=== PATIENT | male | born 1980 | race Caucasian/White ===

== ENCOUNTER 2023-10-15 09:20 | Day surgery (SDC) | payer OTHER ==
[~2023-10-15] VITALS: Ht 190.5 cm; Wt 145.1 kg
[2023-10-15] MEDS ORDERED: LISI5 PO (09:49)
[2023-10-15] MEDS ORDERED: ATORVASTATIN CA20 MG PO (09:49)
--- NOTE | 2023-10-15 09:57 | NUR ---
10/15/23 0957 Anoop Abernathy CALL LIGHT WITHIN REACH. TETRACAINE IN RIGHT EYE AT 0951 AND PLEDGETT IN AT 0967
[2023-10-15 11:30] VITALS: BP 139/88
== END 2023-10-15 11:44 | disposition home or self-care (01) ==
LOC: ORSCSDS 09:20
PROVIDERS: Student in an Organized Health Care Education/Training Program
PROC: 08RJ3JZ Replacement of Right Lens with Synthetic Substitute, Percutaneous Approach (ICD-10-PCS; principal; 2023-10-15 10:30)
DX: H25.11 Age-related nuclear cataract, right eye (principal); Z96.1 Presence of intraocular lens; I10 Essential (primary) hypertension; E66.9 Obesity, unspecified; Z68.41 Body mass index [BMI] 40.0-44.9, adult; Z79.899 Other long term (current) drug therapy
CPT/HCPCS: J2250; J3010; J7040; V2632

== ENCOUNTER 2025-05-03 10:55 | Inpatient (IN) | payer OTHER ==
[2025-05-03] VITALS (18 sets, daily range): BP systolic 138–186; BP diastolic 71–150
[~2025-05-03] VITALS: Ht 190.5 cm; Wt 145.0 kg
[~2025-05-03 10:55] MED LIST: ATORVASTATIN CA20 MG PO; LISI5 PO
[2025-05-03] MEDS ORDERED: NS 1,000 ML IV SCH ×2 (12:25→15:35)
[2025-05-03] MEDS ORDERED: Piperacillin/Tazobactam Sod 4.5 GM in NS 100 ML IV ONE (13:55)
[2025-05-03] MEDS ORDERED: Ketorolac Tromethamine 15mg Vial IV ONE (14:05)
[2025-05-03] MEDS ORDERED: Acetaminophen 500 MG Tab PO ONE (14:25)
[2025-05-03] MEDS ORDERED: Vancomycin HCL 2,500 MG in NS 500 ML IV ONE (15:25)
[2025-05-03] MEDS ORDERED: Acetaminophen 325 MG TABLET PO PRN (15:30)
[2025-05-03] MEDS ORDERED: Prochlorperazine Edisylate 10 mg Vial IV PRN (15:35)
[2025-05-03] MEDS ORDERED: HYDROmorphone HCl/Pf 1MG SYR IV PRN ×2 (15:35→20:10)
[2025-05-03] MEDS ORDERED: IBUP400 PO (16:52)
[2025-05-03] MEDS ORDERED: Lactated Ringer's 1,000 ML IV SCH (17:05)
--- NOTE | 2025-05-03 17:14 | NUR ---
UPDATE PT TAKEN TO DAY SURGERY FOR PROCEDURE. WILL AWAIT RETURN.
[2025-05-03] MEDS ORDERED: Dexamethasone Sod Phos 10 MG/ML 1ML VIAL ONE (17:21)
[2025-05-03] MEDS ORDERED: Ondansetron HCl 2 MG / ML 2ML Vial ONE (17:21)
[2025-05-03] MEDS ORDERED: Rocuronium Bromide 10 MG/ML 5ML Injection IV ONE (17:22)
[2025-05-03] MEDS ORDERED: SuccINYLCHOLINE Chloride 100 MG/5 ML 5MLSYR ONE (17:22)
[2025-05-03] MEDS ORDERED: propofoL 40 ML IV ONE (17:22)
[2025-05-03] MEDS ORDERED: Dexmedetomidine HCL 200 MCG / 2 ML ONE (17:56)
[2025-05-03] MEDS ORDERED: Etomidate 2MG / ML 10ML Vial ONE (17:56)
[2025-05-03] MEDS ORDERED: Piperacillin/Tazobactam Sod 3.375 GM in NS 100 ML IV SCH (18:00)
[2025-05-03] MEDS ORDERED: Lidocaine 2%-Epineph 1:100000 20 ML MDV ONE (18:04)
[2025-05-03] MEDS ORDERED: Metoclopramide HCl 5MG / ML 2ML Vial ONE (18:07)
[2025-05-03] MEDS ORDERED: Benzocaine Oral Spray 0.5ML UD ONE (18:11)
[2025-05-03] MEDS ORDERED: Midazolam HCl 1MG / ML 2ML Vial ONE (18:29)
[2025-05-03] MEDS ORDERED: Lidocaine 1%-Epineph 1:100000 20 ML MDV INJ ONE (18:55)
[2025-05-03] MEDS ORDERED: FentaNYL Citrate 50 MCG/ML 2 ML Injection ONE ×2 (18:55→20:17)
[2025-05-03] MEDS ORDERED: Sugammadex Sodium 200 MG/2ML SDV (100 MG/ML) ONE (19:24)
[2025-05-03] MEDS ORDERED: Ondansetron HCl 2 MG / ML 2ML Vial IV PRN (20:05)
[2025-05-03] MEDS ORDERED: HydrALAZINE HCl 20 MG / ML 1ML Vial IV PRN (20:10)
[2025-05-03] MEDS ORDERED: Albuterol 2.5 MG/3 ML VIAL INH PRN (20:10)
[2025-05-03] MEDS ORDERED: FentaNYL Citrate 50 MCG/ML 2 ML Injection IV PRN (20:10)
[2025-05-03] MEDS ORDERED: Ketorolac Tromethamine 30mg Vial IV PRN (20:15)
[2025-05-03] MEDS ORDERED: Ketorolac Tromethamine 15mg Vial IV PRN (20:15)
[2025-05-03] MEDS ORDERED: HydrALAZINE HCl 20 MG / ML 1ML Vial ONE (20:17)
[2025-05-03] MEDS ORDERED: Ketorolac Tromethamine 30mg Vial ONE (20:17)
[2025-05-03 21:38] LABS: International Normalized Ratio 1.14; Prothrombin Time Results 12.4 Sec (9.7-11.5)
[2025-05-04] VITALS (8 sets, daily range): BP systolic 108–144; BP diastolic 61–83
[2025-05-04] MEDS ORDERED: Piperacillin/Tazobactam Sod 3.375 GM in NS 100 ML IV SCH
[2025-05-04] MEDS ORDERED: Vancomycin HCL 2,000 MG in NS 500 ML IV SCH (03:00)
[2025-05-04 04:05] LABS: BASOPHILS ABSOLUTE AUTO 0.03 K/mm3 (0.00-0.23); BASOPHILS PERCENT AUTO 0 % (0-2); EOSINOPHILS PERCENT AUTO 0 % (0-6); Hematocrit 38.1 % (37.0-53.0); Hemoglobin 12.5 g/dL (13.5-17.5); IMMATURE GRAN ABSOLUTE AUTO 0.19 K/mm3 (0.00-0.10); IMMATURE GRAN PERCENT AUTO 1 % (0-1); LYMPHOCYTES ABSOLUTE AUTO 1.48 K/mm3 (0.84-5.20); LYMPHOCYTES PERCENT AUTO 7 % (21-46); MONOCYTES ABSOLUTE AUTO 1.41 K/mm3 (0.16-1.47); MONOCYTES PERCENT AUTO 7 % (4-13); Mean Corpuscular HGB 27.2 pg (26.0-34.0); Mean Corpuscular HGB Conc 32.8 g/dL (31.5-36.5); Mean Corpuscular Volume 83 fL (80-100); Mean Platelet Volume 10.3 fL (9.1-12.4); NEUTROPHILS ABSOLUTE AUTO 18.66 K/mm3 (1.96-9.15); NEUTROPHILS PERCENT AUTO 86 % (41-73); Platelet Count 223 K/mm3 (150-400); RDW Coefficient Variation 14.3 % (11.7-14.2); RDW Standard Deviation 42.9 fL (35.1-46.3); Red Blood Cell Count 4.59 M/mm3 (4.30-5.90); White Blood Cell Count 21.77 K/mm3 (4.00-11.30)
[2025-05-04 04:26] LABS: Bun/Creatinine Ratio 11.4 (12.0-20.0); Calcium, Blood 8.5 mg/dL (8.5-10.1); Creatinine, Blood 0.97 mg/dL (0.60-1.20); Potassium, Blood 4.3 mmol/L (3.5-5.5)
--- NOTE | 2025-05-04 05:22 | NUR ---
SHIFT SUMMARY. PATIENT IS ALERT AND ORIENTED X4. PATIENT IS ABLE TO MAKE HIS NEEDS KNOWN AND CALLS APPROPRIATELY. PATIENT WAS ADMITTED 05/03/25 WITH AN ABSCESS TO THE LEFT NECK. PERFORMED AND I&D ON THE PATIENTS ABSCESS ON 05/03/25 PATIENT RETURNED TO ROOM VIA GURNEY AND 4P ASSIST WITH SLIDE SHEET BACK INTO HOSPITAL BED. PATIENT IS ABLE TO STAND INDEPENDENTLY AT BEDSIDE AND USE THE URINAL-PRIOR TO I&D PATIENT UP INDEPENDENTLY IN ROOM-PATIENT FEELS STEADY ON HIS FEET. PATIENT REPORTS BEING HUNGRY UPON ARRIVAL BACK TO ROOM-RESIDENT CONTACTED AND ADVANCED DIET TO FULL LIQUID-PATIENT TOLERATED FULL LIQUID WELL, BEDSIDE SWALLOW DONE AND PATIENT ABLE TO TOLERATE SOLD FOODS. PATIENT IS PLEASANT AND COOPERATIVE WITH CARE. PATIENT IS RECEIVING IV ABX AT THIS TIME, WBC ELEVATED ON MORNING LABS THIS AM; 05/04/25. PATIENT HAS DRESSING TO LEFT NECK WITH KAY DRAIN. PATIENT REPORTED THAT DRESSING FELT OPEN AND THAT IT MIGHT BE WET-THIS RN PULLED DRESSING BACK, DRESSING NOT SATURATED AND KAY DRAIN IN PLACE. PATIENT HAD A FEVER THIS MORNING TREATED WITH TYLENOL PER ORDERS WITH A DECREASE TO TEMPERATURE. PATIENT DENIES PAIN AT REST BUT REPORTS PAIN WHEN MOVING HEAD TOWARDS THE LEFT. PATIENT REPORTS THAT HIS THROAT IS SORE-DISCUSSED AND EDUCATED ON BEING INTUBATED DURING THE PROCEDURE-PATIENT EXPRESSED UNDERSTANDING. PATIENT HAS RESTED ON AND OFF T/O NIGHT. BED IS LOCKED IN THE LOWEST POSITION WITH CALL LIGHT AND URINAL IN REACH. PATIENTS NEEDS ASSESSED-PATIENT DENIES NEEDS AT THIS TIME. CARE IS ONGOING.
[2025-05-04] MEDS ORDERED: Lisinopril 10 MG Tab PO SCH (09:00)
--- NOTE | 2025-05-04 09:58 | NUR ---
AM NOTE: PATIENT ALERT AND ORIENTED X4. DENIES PAIN THIS MORNING. LEFT NECK DRESSING C/D/I. SWELLING/REDNESS NOTED TO LEFT NECK. KAY DRAIN IN PLACE. ABSCESS CULTURE SENT TO LAB THIS AM. MOVING IND IN BED AND UP TO BATHROOM. TELE SHOWING SR WITH HR 70-90'S. DENIES CHEST PAIN/PRESSURE/PALPITATIONS. PPP. SCD'S IN PLACE. ON ROOM AIR, LUNG SOUNDS CLEAR. DENIES SOB/COUGH. EVEN AND UNLABORED RESPIRTATIONS. BOWEL TONES PRESENT. DENIES ABDOMINAL PAIN/NAUSEA. TOELRATING PO DIET, ADVANCED TO REGULAR. COMPLAINS OF INTERMIT SORE THROAT. DENIES ISSUES WITH VOIDING. USING URINAL IND. AT BEDSIDE. DR. ERICKSON BY THIS AM FOR MD ROUNDING AND THIS RN AND AT BEDSIDE. ORDERS FOR MEDICAL STATUS NO TELE, DISCONTINUE IV NORMAL SALINE AND REGULAR DIET. ORDERS IN PLACE. PATIENT DENIES NEEDS AT THIS TIME.
--- NOTE | 2025-05-04 18:08 | NUR ---
TRANSFER: REPORTED OFF TO DAVID LUCIA. PATIENT REMAINS ALERT AND ORIENTED. UP IND. SHOWER COMPLETED TODAY. DR. LPOEZ TO BEDSIDE TO ASSESS, SEE WOUND CARE ORDERS. MEDICAL STATUS NO TELE. ON ROOM AIR. SEE CHARTED TEMPS. PATIENT REQUESTING TYLENOL Q6. AT BEDSIDE AND UPDATED THROUGHOUT THE DAY. TRANSFER TO MEDICAL WITH ALL PERSONAL BELONGINGS, CHART AND WITH IV ABX INFUSING.
--- NOTE | 2025-05-04 19:19 | NUR ---
ASSUMPTION OF CARE RECEIVED CLIENT AAS A TRANSFER FROM PCU. CLIENT IS POST IND OF AN ABCESS ON LEFT NECK. WOUND HAS A KAY DRAIN COVERED BY GAUZE AND SECURED WITH TAPE.REGULAR DIET, ROOM AIR, IV'S IN LEFT AC AND RIGHT WRIST. INDEPENDENT IN ROOM. AOX4. ORIENTED TO ROOM AND RAPID RESPONSE TEAM PROCEDURE. BED IN LOW POSITION AND CALL LIGHT IS WITHIN REACH
[2025-05-04] MEDS ORDERED: Ketorolac Tromethamine 15mg Vial IV PRN (21:40)
--- NOTE | 2025-05-04 21:40 | NUR ---
NEW T-ORDER RECEIVED FROM THE ON-CALL HOSPITALIST DR. ROCHA: TORADOL IV 15MG Q8HRS PRN, MAX 5 DOSES. ENTERED TO [email or web address], SEE EMAR.
[2025-05-04] MEDS ORDERED: NS 250 ML IV PRN (23:55)
[2025-05-05 02:31] LABS: BASOPHILS ABSOLUTE AUTO 0.06 K/mm3 (0.00-0.23); BASOPHILS PERCENT AUTO 0 % (0-2); EOSINOPHILS ABSOLUTE AUTO 0.07 K/mm3 (0.00-0.68); EOSINOPHILS PERCENT AUTO 0 % (0-6); Hematocrit 34.3 % (37.0-53.0); Hemoglobin 11.3 g/dL (13.5-17.5); IMMATURE GRAN ABSOLUTE AUTO 0.11 K/mm3 (0.00-0.10); IMMATURE GRAN PERCENT AUTO 1 % (0-1); LYMPHOCYTES ABSOLUTE AUTO 2.67 K/mm3 (0.84-5.20); LYMPHOCYTES PERCENT AUTO 15 % (21-46); MONOCYTES PERCENT AUTO 9 % (4-13); Mean Corpuscular HGB 26.8 pg (26.0-34.0); Mean Corpuscular HGB Conc 32.9 g/dL (31.5-36.5); Mean Corpuscular Volume 82 fL (80-100); Mean Platelet Volume 10.2 fL (9.1-12.4); NEUTROPHILS ABSOLUTE AUTO 13.28 K/mm3 (1.96-9.15); NEUTROPHILS PERCENT AUTO 75 % (41-73); Platelet Count 201 K/mm3 (150-400); RDW Coefficient Variation 14.5 % (11.7-14.2); RDW Standard Deviation 42.8 fL (35.1-46.3); Red Blood Cell Count 4.21 M/mm3 (4.30-5.90); White Blood Cell Count 17.79 K/mm3 (4.00-11.30)
[2025-05-05 02:50] LABS: Anion Gap 8 mmol/L (3-11); Blood Urea Nitrogen 15 mg/dL (8-24); Bun/Creatinine Ratio 17.8 (12.0-20.0); CO2, Blood 24 mmol/L (21-32); Calcium, Blood 8.3 mg/dL (8.5-10.1); Chloride, Blood 112 mmol/L (98-108); Creatinine, Blood 0.84 mg/dL (0.60-1.20); Glomerular Filtration Rate 109 (60-); Glucose, Blood 126 mg/dL (70-99); Sodium, Blood 140 mmol/L (136-145); Vancomycin, Trough 10.2 ug/mL (5.0-10.0)
--- NOTE | 2025-05-05 03:37 | NUR ---
SHIFT SUMMARY NO ACUTE EVENTS DURING THIS SHIFT. MEDICATED PER EMAR WITH PRN TORADOL IV, AND PO PRN TYLENOL FOR LEFT NECK PRESSURE AND SLIGHT ELEVATION IN TEMP. PT REPORTS VERY EFFECTIVE. PT'S BY THE BEDSIDE, WHO REPORTED TO THIS CIGARETTE BOOK MAKER THAT PT HAD A PANIC ATTACK AT HS. PT DENIES SOB. ON RA. O2 SAT'S> 99%, RR EVEN, UNLABORED. IV ABX INFUSED ORDERED. LEFT SIDE NECK POST I&D COVERED WITH GAUZE, SECURED BY TAPE. KAY DRAIN IN PLACE. C/D/I. SWELLING NOTED ON LEFT SIDE AT HS, ICE PACK APPLIED WITH GOOD EFFECTIVNESS. BED AT THE LOWEST POSITION, CALL LIGHT W/I REACH. PT IS A/OX4, ABLE TO MAKE HIS NEEDS KNOWN AND COOPERATIVE WITH CARE.
[2025-05-05] MEDS ORDERED: Vancomycin HCL 1,500 MG in NS 250 ML IV SCH (04:00)
[2025-05-05 04:37] VITALS: BP 127/76
[2025-05-05] MEDS ORDERED: Acetaminophen 325 MG TABLET PO PRN (04:47)
--- NOTE | 2025-05-05 04:47 | NUR ---
NEW T-ORDER RECEIVED FROM THE ON-CALL HOSPITALIST : CHANGE TYLENOL 650MG PO Q6HRS PRN TO: TYLENOL 650MG PO Q4HRS PRN. ENTERED TO [employer], SEE EMAR.
[2025-05-05] MEDS ORDERED: Piperacillin/Tazobactam Sod 3.375 GM in NS 100 ML IV SCH (06:00)
[2025-05-05 07:20] VITALS: BP 123/74
[2025-05-05 16:32] VITALS: BP 136/76
--- NOTE | 2025-05-05 18:56 | NUR ---
PATIENT A/OX4, UP INDEPENDENTLY IN ROOM. TYLENOL AND TORADOL GIVEN TODAY FOR PAIN. DRESSING TO L NECK ABCESS CHANGED THIS AM AND REMAINS C/D/I. VSS, ON RA. COOPERATIVE WITH CARE AND ABLE TO MAKE NEEDS KNOWN. NO OTHER NEW CONCERNS THIS SHIFT.
[2025-05-05 19:46] VITALS: BP 131/85
[2025-05-06 02:59] LABS: Hematocrit 32.5 % (37.0-53.0); Hemoglobin 10.6 g/dL (13.5-17.5); Mean Corpuscular HGB 26.5 pg (26.0-34.0); Mean Corpuscular HGB Conc 32.6 g/dL (31.5-36.5); Mean Corpuscular Volume 81 fL (80-100); Mean Platelet Volume 9.8 fL (9.1-12.4); Platelet Count 224 K/mm3 (150-400); RDW Coefficient Variation 14.3 % (11.7-14.2); RDW Standard Deviation 42.7 fL (35.1-46.3); White Blood Cell Count 13.02 K/mm3 (4.00-11.30)
[2025-05-06 03:23] LABS: Anion Gap 8 mmol/L (3-11); Blood Urea Nitrogen 11 mg/dL (8-24); Bun/Creatinine Ratio 13.1 (12.0-20.0); CO2, Blood 24 mmol/L (21-32); Calcium, Blood 8.2 mg/dL (8.5-10.1); Chloride, Blood 111 mmol/L (98-108); Creatinine, Blood 0.84 mg/dL (0.60-1.20); Glomerular Filtration Rate 109 (60-); Glucose, Blood 109 mg/dL (70-99); Potassium, Blood 3.8 mmol/L (3.5-5.5); Sodium, Blood 139 mmol/L (136-145); Vancomycin, Trough 13.7 ug/mL (5.0-10.0)
--- NOTE | 2025-05-06 03:30 | NUR ---
SHIFT SUMMARY NO ACUTE EVENTS DURING THIS SHIFT. MEDICATED FOR LEFT SIDED NECK PRESSURE AND H/A PER EMAR. IV ABX'S INFUSED ORDERED. PT IS A/O X4, INDEPENDENT W/I THE HOSPITAL ROOM AND COOPERATIVE WITH CARE. AT SHIFT CHANGE BY THE BEDSIDE, DRESSING CHANGE COMPLETED. LEFT RETROPERITEAL DRESSING C/D/I AND CHANGED DURING THE CLOTH COLORS EXAMINER HRS. SWELLING NOTED ON LEFT SIDE. HEATING PAD IN PLACE INTERMITTENTLY. ENCOURAGED THE PT TO MASSAGE GENTLY THE AREA. SCANT AMOUNT OF SEROSANQUINEOUS DRAINAGE NOTED. BED AT THE LOWEST POSITION, CALL LIGHT W/I REACH.
[2025-05-06] MEDS ORDERED: Vancomycin HCL 1,750 MG in NS 500 ML IV SCH (05:00)
[2025-05-06 06:19] VITALS: BP 146/87
[2025-05-06 07:54] VITALS: BP 141/82
[2025-05-06] MEDS ORDERED: Lactobacil 2-S.Thermo-Bifido 1 1 Cap PO SCH (09:00)
[2025-05-06] MEDS ORDERED: Prinivil10 MG PO (13:45)
[2025-05-06] MEDS ORDERED: CEPH500 PO (13:48)
[2025-05-06 15:25] VITALS: BP 135/83
--- NOTE | 2025-05-06 16:33 | NUR ---
PATIENT A/OX4, UP INDEPENDENTLY IN ROOM. VSS, ON RA. DRESSING CHANGED X2 THIS SHIFT. CONTINUES ON VANCO AND ZOSYN. PAIN CONTROLED WITH TYLENOL. PATIENT CALM AND COOPERATUVE AND ABLE TO MAKE NEEDS KNOWN. STATES HE IS FEELING MUCH BETTER TODAY.
[2025-05-06 19:34] VITALS: BP 156/88
[2025-05-07 02:13] VITALS: BP 138/86
--- NOTE | 2025-05-07 02:58 | NUR ---
SHIFT SUMMARY NO ACUTE EVENTS DURING THIS SHIFT. DRESSING C/D/I. MEDICATED FOR ELEVATED TEMP AT HS 100.2 AND FOR 5/10 H/A PER EMAR. BED AT THE LOWEST POSITION, CALL LIGHT W/I REACH. PT IS A/OX4, PLEASANT AND ABLE TO MAKE HIS NEEDS KNOWN.
[2025-05-07 05:06] LABS: Vancomycin, Trough 19.8 ug/mL (5.0-10.0)
[2025-05-07 08:03] VITALS: BP 156/90
--- NOTE | 2025-05-07 17:19 | NUR ---
PATIENT ALERT AND ORIENTED X4, COMPLAINTS OF HEADACHE THIS AM, RESOLVED WITH MEDICATION. IV ABX ADMISTERED PER PLAN OF CARE. PATIENT INDEPENDENT WITH CARE AND ABLE TO CHANGE DRESSING ON NECK. ENCOURAGED PATIENT TO WASH HANDS PRIOR TO CLEANING WOUND AREA TO MINIMIZE INFECTION. PATIENT VERBALLY AGREED. CALL LIGHT WITHIN REACH.
[2025-05-07 18:15] VITALS: BP 151/89
[2025-05-07 19:17] VITALS: BP 142/84
[2025-05-07 23:35] VITALS: BP 149/77
[2025-05-08 04:31] VITALS: BP 145/80
[2025-05-08 05:10] LABS: Hematocrit 33.1 % (37.0-53.0); Hemoglobin 10.7 g/dL (13.5-17.5); Mean Corpuscular HGB 26.3 pg (26.0-34.0); Mean Corpuscular HGB Conc 32.3 g/dL (31.5-36.5); Mean Corpuscular Volume 81 fL (80-100); Mean Platelet Volume 9.9 fL (9.1-12.4); Platelet Count 264 K/mm3 (150-400); RDW Coefficient Variation 14.1 % (11.7-14.2); RDW Standard Deviation 41.8 fL (35.1-46.3); Red Blood Cell Count 4.07 M/mm3 (4.30-5.90); White Blood Cell Count 11.99 K/mm3 (4.00-11.30)
[2025-05-08 05:53] LABS: Calcium, Blood 8.8 mg/dL (8.5-10.1); Creatinine, Blood 1.34 mg/dL (0.60-1.20); Potassium, Blood 3.8 mmol/L (3.5-5.5)
[2025-05-08 06:12] LABS: Vancomycin, Trough 26.2 ug/mL (5.0-10.0)
--- NOTE | 2025-05-08 06:22 | NUR ---
SHIFT SUMMARY: Pt is admitted for retropharyengeal abscess and is a full code. Is alert and able to make needs known. ADLs have been IND. pain has been managed with PRN medications. Dressing to left neck was changed by PT. pinrose drain in place and draining light pea green fluid as noted during change. Critical value for vanco reported to pharmacy.
[2025-05-08 07:38] VITALS: BP 152/90
--- NOTE | 2025-05-08 09:00 | NUR ---
pt laying in bed awake a/ox4, pleasant and cooperative with care, follows commands well, denies pain at this time, up indep, in room, has dressing to left side of neck pt and his changes the dressings when saturated, no needs at this time, call light in reach.
[2025-05-08 16:45] VITALS: BP 172/88
--- NOTE | 2025-05-08 19:09 | NUR ---
pt has had a h/a throughout the day, tylenol and toradol was effective. his spouce has been in to visit throughout the day. julia light in reach.
[2025-05-08 19:30] VITALS: BP 155/86
[2025-05-09 04:08] VITALS: BP 140/85
[2025-05-09 05:40] LABS: Bun/Creatinine Ratio 9.3 (12.0-20.0); Calcium, Blood 9.2 mg/dL (8.5-10.1); Creatinine, Blood 1.62 mg/dL (0.60-1.20); Potassium, Blood 4.1 mmol/L (3.5-5.5)
--- NOTE | 2025-05-09 06:41 | NUR ---
SHIFT SUMMARY: Pt is admitted for retropharyengeal abscess and is a full code. Is alert and able to make needs known. ADLs have been IND. pain has been managed with PRN medications. Dressing to left neck was changed by PT. pinrose drain in place and draining light pea green fluid as noted during change. PT changed dressing after a shower and reported a large amount of drainage from site during shower and area message.
[2025-05-09 07:44] VITALS: BP 142/84
[2025-05-09] MEDS ORDERED: Cefepime HCl 2,000 MG in NS 100 ML IV SCH (08:19)
[2025-05-09] MEDS ORDERED: MetroNIDAZOLE 500 MG Tab PO SCH (09:00)
[2025-05-09] MEDS ORDERED: NS 1,000 ML IV SCH (09:00)
[2025-05-09 15:55] VITALS: BP 127/65
--- NOTE | 2025-05-09 16:13 | NUR ---
Pt iv sluggish to flush and uncomfortable for pt, new IV placed to lfa x1 attempt, with good blood return, pt tolerated well, at bedside, call light in reach.
--- NOTE | 2025-05-09 18:44 | NUR ---
pt recieved a new piv today, took a shower, his assisted in expressing the wound and placing a new dressing. no further changes this shift. call light in reach.
[2025-05-09 19:24] VITALS: BP 140/79
[2025-05-10 04:15] VITALS: BP 141/79
--- NOTE | 2025-05-10 04:56 | NUR ---
SHIFT SUMMARY: Pt is admitted for retropharyengeal abscess and is a full code. Is alert and able to make needs known. ADLs have been IND. pain has been managed with PRN medications. Dressing to left neck was changed by PT. pinrose drain in place and draining light pea green fluid as noted during change.
[2025-05-10 05:37] LABS: Bun/Creatinine Ratio 8.9 (12.0-20.0); Calcium, Blood 8.7 mg/dL (8.5-10.1); Creatinine, Blood 1.46 mg/dL (0.60-1.20); Potassium, Blood 4.2 mmol/L (3.5-5.5)
[2025-05-10 08:04] VITALS: BP 152/92
[2025-05-10] MEDS ORDERED: NS 1,000 ML IV SCH (11:00)
[2025-05-10] MEDS ORDERED: FentaNYL Citrate 50 MCG/ML 2 ML Injection IV ONE (13:35)
[2025-05-10] MEDS ORDERED: Dexamethasone Sodium Phosphate 4 MG/ML 1ML Vial IV SCH (15:00)
[2025-05-10] MEDS ORDERED: HYDROcodone 5-APAP 325 TAB PO PRN (15:35)
[2025-05-10 16:00] VITALS: BP 128/74
--- NOTE | 2025-05-10 18:20 | NUR ---
SHIFT SUMMARY PT A&OX4, VSS, AMB IND, TOLERATING PO, VOIDING, AND PAIN MANAGED PER EMAR. NS CONT TO INFUSE PER ORDER. JOHN ROUNDED ON PT AND REPLACED KAY DRAIN. DECADRON GIVEN PER ORDER AND EMAR UPDATED BY FOR BID ADMIN. ABX GIVEN PER ORDER. NO OTHER ACUTE CHANGES. CALL LIGHT WITHIN REACH AND PT ABLE TO MAKE NEEDS KNOWN.
[2025-05-10 19:12] VITALS: BP 161/87
--- NOTE | 2025-05-11 04:29 | NUR ---
SHIFT SUMMARY 45 YR M ADMITTED ON 05/03/25. FULL CODE. NO ACUTE CHANGES THIS SHIFT. PT IS INEDPENDANT AND CALLS APPROPRIATLY FOR ASSISTANCE WHEN NEEDED. HE CHANGES HIS WOUND DRESSING HIMSELF. HE C/O HEADACHE AND IS BEING GIVEN TYLENOL PER EMAR WITH GOOD RESULTS. NO NEW CHANGES TO REPORT. BED IN LOW POSITION AND CALL LIGHT IN REACH.
[2025-05-11 04:39] VITALS: BP 151/87
[2025-05-11 05:31] LABS: Bun/Creatinine Ratio 11.9 (12.0-20.0); Calcium, Blood 8.8 mg/dL (8.5-10.1); Creatinine, Blood 1.34 mg/dL (0.60-1.20); Potassium, Blood 4.1 mmol/L (3.5-5.5)
[2025-05-11 08:18] VITALS: BP 152/94
[2025-05-11] MEDS ORDERED: AMOCLA875 PO (10:49)
[2025-05-11] MEDS ORDERED: VISBIOME 112.51 EACH PO (10:49)
--- NOTE | 2025-05-11 12:49 | NUR ---
DISCHARGE NOTE PT D/C HOME AT 1205. PT AND PT'S PROVIDED W/ VERBAL AND WRIITEN INSTRUCTIONS AND REPORTED UNDERSTANDING. PT A&OX4, VSS, AMB IND, TOLERATNG PO, VOIDING, AND PAIN MANAGED. KAY DRAIN REMAINED IN PLACE. PT TO F/U W/ JOHN THIS WEEK, APPT SCHEDULED. BELONGINGS WERE RETURNED AND PT ESCOURTED HIMSELF OUT.
== END 2025-05-11 12:06 | disposition home or self-care (01) | DRG 871 ==
LOC: ER 10:55 → MEDS 15:32 → ERHOLD 15:32 → PCU 15:32 → MEDS 05-04 17:55
PROVIDERS: Internal Medicine; Otolaryngology; ADMIT Internal Medicine
PROC: 0J950ZZ Drainage of Left Neck Subcutaneous Tissue and Fascia, Open Approach (ICD-10-PCS; 2025-05-03)
PROC: 3E03329 Introduction of Other Anti-infective into Peripheral Vein, Percutaneous Approach (ICD-10-PCS; principal; 2025-05-03 17:30)
DX: A41.9 Sepsis, unspecified organism (principal); N17.0 Acute kidney failure with tubular necrosis; L02.11 Cutaneous abscess of neck; J39.0 Retropharyngeal and parapharyngeal abscess; I10 Essential (primary) hypertension; E78.5 Hyperlipidemia, unspecified; Z86.19 Personal history of other infectious and parasitic diseases; Z98.42 Cataract extraction status, left eye; Z98.41 Cataract extraction status, right eye; Z88.8 Allergy status to other drugs, medicaments and biological substances
CPT/HCPCS: 36415; 70491; 80048; 80202; 85025; 85027; 85610; 85730; 87070; 87075; 87205; 94762; 96361; 96365-59; 96375-59; 99285-25; A9270; J0330; J0360; J0692; J1100; J1885; J2250; J2405; J2543; J2704; J2765; J3010; J3370; J7030; J7040; J7050; J7120; Q9967